=== PATIENT | female | born 1950 | race Caucasian/White ===

== ENCOUNTER → 2025-08-07 13:45 | Outpatient (REF) | payer MEDICARE, OTHER, SELFPAY | LOC: WDC 13:45 | DX: Z12.31 Encounter for screening mammogram for malignant neoplasm of breast (principal) | CPT/HCPCS: 77062; 77066 ==

== ENCOUNTER → 2025-09-04 12:49 | Outpatient (REF) | payer MEDICARE, OTHER, SELFPAY | LOC: RAD 12:49 | PROVIDERS: ATTENDING PHYSICIAN Family Medicine | DX: I65.23 Occlusion and stenosis of bilateral carotid arteries (principal) | CPT/HCPCS: 93880 ==

== ENCOUNTER → 2025-09-23 09:42 | Outpatient (REF) | payer MEDICARE, OTHER, SELFPAY | LOC: WDC 09:42 | PROVIDERS: ATTENDING PHYSICIAN Surgery; FAMILY PHYSICIAN Family Medicine | DX: R92.30 Dense breasts, unspecified (principal); Z85.3 Personal history of malignant neoplasm of breast | CPT/HCPCS: 76641 ==